=== PATIENT | male | born 1950 | race Caucasian/White ===

== ENCOUNTER 2019-09-29 18:15 | Inpatient (IN) ==
[2019-09-29] MEDS ORDERED: MORPHINE IV ONE ×2 (18:39→20:52)
[2019-09-29] MEDS ORDERED: NS 1,000 ML IV ONE (18:39)
[2019-09-29] MEDS ORDERED: ZOFRAN IV ONE (18:39)
[2019-09-29 18:48] LABS: BASO# 0.07 X1000 (0.0-0.2); BASO% 0.4 % (0.0-0.8); EOS# 0.06 X1000 (0.0-0.7); EOS% 0.4 % (0.0-10.0); HEMATOCRIT 47.1 % (42.0-52.0); HEMOGLOBIN 15.4 g/dL (14.0-18.0); IMM GRAN# 0.03 X1000 (0.0-0.04); IMM GRAN% 0.2 % (0.0-0.5); LYMPH# 1.75 X1000 (1.2-3.4); MCH 29.1 PG (27-31); MCHC 32.7 g/dL (33-37); MCV 88.9 FL (81-99); MONO# 0.96 X1000 (0.11-0.59); MPV 9.7 FL (7.4-10.4); NEUT# 13.05 X1000 (1.4-6.5); PLT 360 X1000 (130-400); RDW 12.7 % (11.5-14.5); WBC 15.92 X1000 (4.8-10.8)
[2019-09-29 19:06] LABS: AGAP 15; ALBUMIN 4.8 g/dL (3.5-5.0); ALKALINE PHOSPHATASE 106 U/L (32-122); AMYLASE 70 U/L (20-200); BUN 11 mg/dL (8-22); CALCIUM 9.6 mg/dL (8.8-10.2); CHLORIDE 101 mmol/L (98-107); COSMO 286; ESTIMATED GFR > 60; GLUCOSE 161 mg/dL (70-104); GOT 28 U/L (10-34); GPT 27 U/L (10-44); LIPASE 18 U/L (13-60); MAGNESIUM 2.1 mg/dL (1.5-2.7); POTASSIUM 3.8 mmol/L (3.5-5.1); SODIUM 142 mmol/L (136-145); TCO2 26 mmol/L (25-35); TOTAL PROTEIN 8.1 g/dL (6.3-8.3)
[2019-09-29 19:21] LABS: INFLUENZA A NEGATIVE (NEGATIVE); INFLUENZA B NEGATIVE (NEGATIVE)
[2019-09-29 19:22] LABS: URINE SOURCE CLEAN CATCH
[2019-09-29 19:24] LABS: BILIRUBIN URINE NEGATIVE (NEGATIVE); BLOOD URINE NEGATIVE (NEGATIVE); COLOR YELLOW; GLUCOSE URINE NEGATIVE (NEGATIVE); KETONE URINE 100 mg/dL (NEGATIVE); LEUKOCYTES URINE NEGATIVE (NEGATIVE); NITRITE URINE NEGATIVE (NEGATIVE); PH URINE 5.5; PROTEIN URINE 30 mg/dL (NEGATIVE); SP GRAVITY URINE 1.032; TURBIDITY URINE CLEAR (CLEAR); UROBILINOGEN URINE NORMAL (NORMAL)
[2019-09-29 19:25] LABS: UR EPITHELIAL CELLS <10 /HPF (<10); URINE BACTERIA NEGATIVE /HPF; URINE RBC <10 /HPF (<10); URINE WBC <10 /HPF (<10)
--- NOTE | 2019-09-29 20:30 | Diag Imaging Result Doc PS360 ---
EXAM: CT ABD/PELVIS W/IV CONT ONLY 09/29/2019 HISTORY: diffuse abd pain, n/v, low abd tenderness TECHNIQUE: This exam was performed using automated exposure control, adjustment of mA or kV according to patient size, and/or use of iterative reconstruction technique. COMMENT: There is some tree and bud opacity in the lateral left lower lobe. This may represent minimal pneumonitis. There are no previous studies. There is a large amount of fluid in the stomach. There are no gallstones. The liver spleen and adrenal glands are within normal limits. The kidneys are without evidence of hydronephrosis or mass. There our some cortical cysts present in the right kidney. There is a small hiatal hernia. There is panniculitis. There is a mesenteric node on image 63 measuring over 2.4 cm. There are distended distal jejunal loops. There are calcifications in the mesenteric fat. The distal ileum is normal in caliber. The transitional zone is around image 104 in the upper pelvis. There is some fluid in the rectovesical pouch. The appendix is normal in caliber. There is no evidence of acute disease in the visualized portion of the skeleton. IMPRESSION: 1. Minimal left lower lobe pneumonitis. 2. Partial small bowel obstruction. 3. Mesenteric panniculitis. Electronically signed by Mega Stapleton 09/29/2019 8:27 PM
[2019-09-29] MEDS ORDERED: D5 NS 1,000 ML IV ONE (21:07)
--- NOTE | 2019-09-29 21:11 | PROVIDER DOCUMENTATION ---
This chart was entered by Sandra Reyna Scribe, acting as scribe for Arianne Gastelum CRNP. HPI-Abdominal Pain/GI Problem - General Chief Complaint: Abdominal Pain Stated Complaint: FLU LIKE SX Time Seen by Provider: 09/29/19 18:26 Source: patient Allergies/Adverse Reactions: Patient Allergies Allergy/AdvReac Type Severity Reaction Status Date / Time No Known Allergies Allergy Verified 09/29/19 18:23 Home Medications: Home Medication List Medication Instructions Recorded Confirmed Last Taken Type Lovastatin 40 mg PO DAILY 09/29/19 09/29/19 Unknown History - History of Present Illness-ABD Nature of Presenting Problems: pt is a 69 yr old male presenting with mid abdominal pain, nausea and vomiting, pt reports vomited x 1, no fever/chills. diaphoretic. pt denies chest pain or shortness of breath Abdominal Pain Onset Location: reports: other (mid abdomen) Pain Radiation: reports: no radiation Quality of Pain: reports: cramping Severity in ED: reports: moderate Onset/Duration: reports: this morning Timing: reports: still present Activities at Onset: reports: light activity Exposure to sick contacts?: No Modifying Factors: improves with: nothing Associated Symptoms: reports: diaphoresis, nausea, vomiting. denies: chest pain, constipation, diarrhea, fever/chills, genitourinary problems Last BM: unsure Dark Stools Present?: reports: none noticed Rectal Bleeding: reports: none Rectal Pain: reports: none # of Vomiting Episodes: 1 Emesis Description: reports: clear Bruising or Bleeding Gums?: No Similar Symptoms Previously?: No Recently seen or treated by another doctor?: No Review of Systems - Adult - REVIEW OF SYSTEMS - ADULT Constitutional: reports: chills. denies: fever, fatique Eyes: denies: discharge, redness Ears, Nose, Mouth & Throat: denies: ear pain, sinus problem, throat pain Cardiovascular: denies: chest pain, palpitations, syncope Respiratory: denies: cough, shortness of breath Gastrointestinal: reports: abdominal pain, nausea, vomiting. denies: diarrhea Genitourinary: denies: dysuria, frequency, flank pain Musculoskeletal: reports: no symptoms reported Integumentary: reports: no symptoms reported Neurological: denies: dizziness/vertigo, headache/migraines Psychiatric: reports: no symptoms reported Endocrine: reports: no symptoms reported Hematologic/Lymphatic: reports: no symptoms reported Allergic/Immunologic: reports: no symptoms reported All Other Systems: Reviewed and Negative Past History - Adult - PAST MEDICAL HISTORY-ADULT Review of Records: reports: Nursing Assessment Review, Medications Reviewed, Social history reviewed & non-contributory. Major Childhood Illnesses: reports: denies history Cardiovascular: reports: denies history Respiratory: reports: denies history Gastrointestinal: reports: denies history Obstetrical/Gynecological: reports: denies history Genitourinary: reports: denies history Musculoskeletal: reports: denies history Neurological: reports: denies history Endocrine/Immune: reports: denies history Other Conditions: reports: denies history - IMMUNIZATION STATUS Childhood Immunizations: See Nurse Assessment Flu Vaccine: See Nurse Assessment - FAMILY HISTORY Family History: reviewed, not pertinent - SOCIAL HISTORY Smoking: denies Substance Use: denies Living Situation: family Physical Exam-General - PHYSICAL EXAM-ADULT Initial Vital Signs Reviewed: Yes - CONSTITUTIONAL General Appearance: alert, mild distress - EYES Eyes: PERRL/EOMI - HEAD, EARS, NOSE, MOUTH & THROAT HENMT: normocephalic/atraumatic, moist mucous membranes, normal ENT inspection - NECK Neck: non-tender, full range of motion, supple, normal inspection - RESPIRATORY Respiratory: chest non-tender, lungs clear, normal breath sounds - CARDIOVASCULAR Cardiovascular: normal peripheral pulses, regular rate, rhythm, no edema - GASTROINTESTINAL (ABDOMEN) Abdominal Exam: normal bowel sounds, soft, guarding, tenderness (low abdomen) - LYMPHATIC Lymphatic: no adenopathy - MUSCULOSKELETAL Back Exam: normal inspection Extremity: normal range of motion, non-tender, normal gait, normal inspection - SKIN Integumentary: normal turgor, diaphoresis - NEUROLOGIC Neurologic: grossly normal - PSYCHIATRIC Psych/Mental Status: normal mood/affect Progress - PLAN OF CARE/RESULTS Progress/Plan/Lab Results: Vital Signs - 8 hr 09/29/19 18:18 Temperature 97.8 F Pulse Rate 93 H Respiratory Rate 19 Blood Pressure 127/84 O2 Sat by Pulse Oximetry 96 Laboratory Results - last 24 hr 09/29/19 09/29/19 09/29/19 18:30 18:40 18:40 WBC 15.92 H RBC 5.30 Hgb 15.4 Hct 47.1 MCV 88.9 MCH 29.1 MCHC 32.7 L RDW Std Deviation 12.7 Plt Count 360 MPV 9.7 Immature Gran % (Auto) 0.2 Neut % (Auto) 82.0 H Lymph % (Auto) 11.0 L [place] % (Auto) 6.0 Eos % (Auto) 0.4 Baso % (Auto) 0.4 Immature Gran # (Auto) 0.03 Neut # (Auto) 13.05 H Lymph # (Auto) 1.75 [place] # (Auto) 0.96 H Eos # (Auto) 0.06 Baso # (Auto) 0.07 Sodium Potassium Chloride Carbon Dioxide Anion Gap BUN Creatinine Estimated GFR/1.73 m2 BUN/Creatinine Ratio Glucose Calculated Osmolality Calcium Magnesium Total Bilirubin AST ALT Alkaline Phosphatase Creatine Kinase 136 Troponin T Total Protein Albumin Globulin Albumin/Globulin Ratio Amylase Lipase Plasma Lactate Urine Source Urine Color Urine Turbidity Urine pH Ur Specific [place] Urine Protein Ur Glucose (Stick) Ur Ketones (Stick) Urine Blood Urine Nitrite Urine Bilirubin Urobilinogen Dipstick Urine Leukocytes Urine WBC (Auto) Urine RBC (Auto) U Epithel Cells (Auto) Urine Bacteria (Auto) Influenza A (Rapid) NEGATIVE Influenza B (Rapid) NEGATIVE 09/29/19 09/29/19 09/29/19 18:40 18:40 18:40 WBC RBC Hgb Hct MCV MCH MCHC RDW Std Deviation Plt Count MPV Immature Gran % (Auto) Neut % (Auto) Lymph % (Auto) [place] % (Auto) Eos % (Auto) Baso % (Auto) Immature Gran # (Auto) Neut # (Auto) Lymph # (Auto) [place] # (Auto) Eos # (Auto) Baso # (Auto) Sodium 142 Potassium 3.8 Chloride 101 Carbon Dioxide 26 Anion Gap 15 BUN 11 Creatinine 1.0 Estimated GFR/1.73 m2 > 60 BUN/Creatinine Ratio 11 Glucose 161 H Calculated Osmolality 286 Calcium 9.6 Magnesium 2.1 Total Bilirubin 0.40 AST 28 ALT 27 Alkaline Phosphatase 106 Creatine Kinase Troponin T < 0.010 Total Protein 8.1 Albumin 4.8 Globulin 3.0 Albumin/Globulin Ratio 1.0 Amylase 70 Lipase 18 Plasma Lactate 2.2 Urine Source Urine Color Urine Turbidity Urine pH Ur Specific [place] Urine Protein Ur Glucose (Stick) Ur Ketones (Stick) Urine Blood Urine Nitrite Urine Bilirubin Urobilinogen Dipstick Urine Leukocytes Urine WBC (Auto) Urine RBC (Auto) U Epithel Cells (Auto) Urine Bacteria (Auto) Influenza A (Rapid) Influenza B (Rapid) 09/29/19 19:16 WBC RBC Hgb Hct MCV MCH MCHC RDW Std Deviation Plt Count MPV Immature Gran % (Auto) Neut % (Auto) Lymph % (Auto) [place] % (Auto) Eos % (Auto) Baso % (Auto) Immature Gran # (Auto) Neut # (Auto) Lymph # (Auto) [place] # (Auto) Eos # (Auto) Baso # (Auto) Sodium Potassium Chloride Carbon Dioxide Anion Gap BUN Creatinine Estimated GFR/1.73 m2 BUN/Creatinine Ratio Glucose Calculated Osmolality Calcium Magnesium Total Bilirubin AST ALT Alkaline Phosphatase Creatine Kinase Troponin T Total Protein Albumin Globulin Albumin/Globulin Ratio Amylase Lipase Plasma Lactate Urine Source CLEAN CATCH Urine Color YELLOW Urine Turbidity CLEAR Urine pH 5.5 Ur Specific [place] 1.032 Urine Protein 30 A Ur Glucose (Stick) NEGATIVE Ur Ketones (Stick) 100 A Urine Blood NEGATIVE Urine Nitrite NEGATIVE Urine Bilirubin NEGATIVE Urobilinogen Dipstick NORMAL Urine Leukocytes NEGATIVE Urine WBC (Auto) <10 Urine RBC (Auto) <10 U Epithel Cells (Auto) <10 Urine Bacteria (Auto) NEGATIVE Influenza A (Rapid) Influenza B (Rapid) Orders Category Date Time Status Cardiac Monitoring DIRECTED Care 09/29/19 18:25 Active Cardiac Monitoring DIRECTED Care 09/29/19 18:39 Active Nursing- Obtain EKG ONCE Care 09/29/19 18:[address] ABD/PELVIS W/IV CONT ONLY [CT] Stat Exams 09/29/19 18:39 Taken AMYLASE [CHEM] Stat Lab 09/29/19 18:40 Completed CBC WITH DIFF [HEME] Stat Lab 09/29/19 18:40 Completed CK PROFILE [SP CHEM] Stat Lab 09/29/19 18:40 Completed COMPREHENSIVE METABOLIC PANEL [CHEM] Stat Lab 09/29/19 18:40 Completed Flu [INFLUENZA SCREEN PL] Stat Lab 09/29/19 18:30 Completed LACTATE, PLASMA [CHEM] Stat Lab 09/29/19 18:40 Completed LIPASE [CHEM] Stat Lab 09/29/19 18:40 Completed MAGNESIUM [CHEM] Stat Lab 09/29/19 18:40 Completed TROPONIN T Stat Lab 09/29/19 18:40 Completed UA NIMS W/REFLEX CULT [URINALYSIS] Stat Lab 09/29/19 19:16 Completed 0.9% Sodium Chloride Inj [Ns] 1,000 ml Med 09/29/19 18:39 Discontinued IV 999 mls/hr Morphine Med 09/29/19 18:39 Discontinued 2 mg IV NOW ONE Ondansetron [Zofran] Med 09/29/19 18:39 Discontinued 4 mg IV NOW ONE EKG [EKG] Stat Ther 09/29/19 18:25 Ordered Result Diagrams: 09/29/19 18:40 09/29/19 18:40 - REASSESSMENT Reassessment #1 Time Reassessed: 20:53 Status: other (Admitting [facility] (at ) paged.) Reassessment #2 Time Reassessed: 21:10 Status: improving (Pain improved, pt states pain meds wearing off and he requests more. He is in agreement with admission plan.) - EKG 1 Time of EKG reading by physician:: 18:31 EKG Read and Signed by:: Sanjeev Peng EKG Interpretation (*Must complete 3 of following elements*): Normal Rate: 52 Rhythm: sinus kel [place]: normal QRS: normal MA Interval: normal ST Wave: normal - CT/MRI 1 CT Study: Abdomen, Pelvis ([facility] - [address] , [address], [place] [address] [facility] - [address] [place] [address] Department of Imaging Patient: SHERLYN HANSEN Date: 09/29/19#: [id number] : 1950DM Status: [facility]#: [id number] Age/Sex: 69/MRoom/Bed: Loc: P.ED Ordering Physician: Arianne Gastelum Family Physician: Cathie Bustillo MD Reason for Procedure: diffuse abd pain, n/v, low abd tenderness ___ Signed EXAM: CT ABD/PELVIS W/IV CONT ONLY 09/29/2019 HISTORY: diffuse abd pain, n/v, low abd tenderness TECHNIQUE: This exam was performed using automated exposure control, adjustment of mA or kV according to patient size, and/or use of iterative reconstruction technique. COMMENT: There is some tree and bud opacity in the lateral left lower lobe. This may represent minimal pneumonitis. There are no previous studies. There is a large amount of fluid in the stomach. There are no gallstones. The liver spleen and adrenal glands are within normal limits. The kidneys are without evidence of hydronephrosis or mass. There our some cortical cysts present in the right kidney. There is a small hiatal hernia. There is panniculitis. There is a mesenteric node on image 63 measuring over 2.4 cm. There are distended distal jejunal loops. There are calcifications in the mesenteric fat. The distal ileum is normal in caliber. The transitional zone is around image 104 in the upper pelvis. There is some fluid in the rectovesical pouch. The appendix is normal in caliber. There is no evidence of acute disease in the visualized portion of the skeleton. IMPRESSION: 1. Minimal left lower lobe pneumonitis. 2. Partial small bowel obstruction. 3. Mesenteric panniculitis. Electronically signed by Mega Stapleton 09/29/2019 8:27 PM 09/29/192026 Interpreting Physician: Mega Stapleton MD Dictated Date/Time: 09/29/192020 cc: Arianne Gastelum; Cathie Bustillo MD) - CONSULTS/PCP/HOSPITALIST Notification #1 *Consult/PCP/Hospitalist*: Dr. Mobley Time Discussed: 20:48 Reason/Comments: partial SBO, abdominal pain Consult Disposition: other (Recommends admission to [facility] at , states they can consult him.) #2 Consult: Dr. Whittington Time Discussed: 21:10 Reason/Comments: admission-abd pain, SBO Consult Disposition: Admit (Dr. Whittington accepted pt, states to send to surgical floor and he will see pt upon arrival and enter orders.) Departure - Departure Date of Disposition Decision: 09/29/19 Time of Disposition Decision: 20:52 DIAGNOSIS: SBO (small bowel obstruction) Abdominal pain Qualifiers: Abdominal location: unspecified location Qualified Code(s): R10.9 - Unspecified abdominal pain Disposition: ADMITTED INPATIENT 09 Certified Medical Emergency: Emergent Condition: Stable Additional Instructions: ED Follow Up Instructions: You have been treated by a care provider in the Emergency Department. These instructions are being provided to you so you can have an understanding of how to care for yourself upon discharge. Upon discharge from the Emergency Depart ment, you are responsible for making arrangements for follow-up care by a physician of your choice. Take all prescribed medications as directed. Return to the Emergency Department immediately for any new or worsening symptoms. You may call the Physician Referral phone number at [phone] to obtain a list of Physicians who are taking new patients. Referrals and Follow-Ups: Cathie Bustillo MD [Primary Care Provider] - Work Excuses: Return to School/Parent Work - Critical Care Note This patient required my direct & personal management of CC.: No Attestation - Physician/ LIZZY Attestation Patient care was provided by Advanced Practice Provider:: Yes Advanced Practice Provider:: Arianne Gastelum Advanced Practice Provider documentation review:: The Mid-level provider documentation, treatment plan and medical decision making was reviewed by the physician who agrees with all treatment and medical decision making by the MLP. The physician spent face to face time with patient:: No Advanced Practice Provider documentation review:: Supervising physician onsite and consulted in the evaluation and care of this patient. The physician did not have a face to face encounter with the patient. This chart was documented by the indicated scribe, (aSndra Reyna Scribe) and accurately reflects the services I performed and decisions made by , Arianne Gastelum CRNP, as attested by the provider's signature.
[2019-09-30] MEDS ORDERED: MORPHINE IV PRN (01:15)
[2019-09-30] MEDS ORDERED: TYLENOL PO PRN ×2 (01:15→11:00)
[2019-09-30] MEDS: ZOFRAN IV PRN ×2 (01:43→10:02)
[2019-09-30] MEDS: PROTONIX IV SCH (01:43)
[2019-09-30] MEDS: SODIUM CHLORIDE 0.9% INJ SCH (01:43)
[2019-09-30] MEDS: ZOSYN 3.375 GM in NS 50 ML IV SCH ×4 (01:51→22:58)
[2019-09-30] MEDS: LR 1,000 ML IV SCH ×2 (01:52→14:07)
--- NOTE | 2019-09-30 02:40 | HISTORY AND PHYSICAL ---
ADDENDUM: Patient comes in complaining of a 2-3 day history of colicky abdominal pain with no specific aggravating or relieving factors. He says he has only thrown up once and his last bowel movement was 24 hours ago and it was nonbloody, nonmucoid with no melena. He denies any fever or chills. He said colicky pain started becoming more intense a few hours prior to presenting to the ER. He said the pain today got so bad that he would have intense rigors and breakout into a profound sweat. Since he has been in the ER and received IV antibiotics, he is feeling better. His white count 16,000. CT shows a panniculitis, partial small bowel obstruction with pneumonitis. Dr. Mobley has been notified and he wanted the patient transferred to our facility and he will see him in the morning. For now, just supportive care with fluids, antiemetics and analgesic agents. May consider antibiotics, i.e. Zosyn, if deemed necessary. On my examination of the patient, he was not toxic at all. He had very mild right lower quadrant tenderness with no peritoneal signs. Otherwise, rest of exam was benign. cc: Chelo Whittington MD
--- NOTE | 2019-09-30 04:27 | EKG Report ---
Test Performed on : 09/29/2019 6:31:46 PM Test Reason : clammy nausea sudden onset Blood Pressure : / mmHG Vent. Rate : 052 BPM Atrial Rate : 052 BPM P-R Int : 140 ms QRS Dur : 104 ms QT Int : 452 ms P-R-T Axes : 041 026 011 degrees QTc Int : 420 ms Sinus bradycardia. Otherwise normal ECG No previous ECGs available Unconfirmed Result
[2019-09-30] MEDS ORDERED: OFIRMEV 1000 MG/ISOTONIC SOLN 1,000 MG/100 ML BOTTLE IV ONE (04:47)
--- NOTE | 2019-09-30 07:10 | Diag Imaging Result Doc PS360 ---
EXAM: CHEST-PORTABLE 09/30/2019 HISTORY: Tree and bud opacity LLL on CT Abd/Pelvis TECHNIQUE: AP portable at 0527 COMMENT: There is no evidence of acute cardiac or pulmonary disease. No previous studies are available for comparison. IMPRESSION: No evidence of acute disease. Electronically signed by Mega Stapleton 09/30/2019 7:08 AM
[2019-09-30] MEDS: MORPHINE IV PRN ×2 (10:02→16:45)
[2019-09-30 12:04] LABS: BASO# 0.03 X1000 (0.0-0.2); BASO% 0.2 % (0.0-0.8); EOS# 0.03 X1000 (0.0-0.7); EOS% 0.2 % (0.0-10.0); HEMATOCRIT 43.6 % (42.0-52.0); HEMOGLOBIN 14.8 g/dL (14.0-18.0); IMM GRAN# 0.03 X1000 (0.0-0.04); IMM GRAN% 0.2 % (0.0-0.5); LYMPH# 1.36 X1000 (1.2-3.4); LYMPH% 9.6 % (20.5-51.1); MCH 30.3 PG (27-31); MCHC 33.9 g/dL (33-37); MCV 89.2 FL (81-99); MONO# 1.12 X1000 (0.11-0.59); MONO% 7.9 % (1.7-9.3); MPV 9.8 FL (7.4-10.4); NEUT# 11.64 X1000 (1.4-6.5); NEUT% 81.9 % (42.2-75.2); PLT 286 X1000 (130-400); RBC 4.89 XMIL (4.7-6.1); WBC 14.21 X1000 (4.8-10.8)
[2019-09-30 12:20] LABS: AGAP 14; BUN 11 mg/dL (8-22); CALCIUM 8.8 mg/dL (8.8-10.2); CHLORIDE 102 mmol/L (98-107); COSMO 282; CREATININE 1.1 mg/dL (0.7-1.2); ESTIMATED GFR > 60; GLUCOSE 121 mg/dL (70-104); SODIUM 141 mmol/L (136-145); TCO2 25 mmol/L (25-35)
--- NOTE | 2019-09-30 13:17 | Diag Imaging Result Doc PS360 ---
EXAM: SMALL BOWEL SERIES ONLY 09/30/2019 HISTORY: Partial SBO TECHNIQUE: 10 images, COMMENT: There is dilatation of the proximal small bowel. There is an apparent obstruction in the upper pelvis which is demonstrated over the left sacral allyssa. There is no significant progress of the barium column between the one hour image and the five hour image this level. IMPRESSION: Small bowel obstruction as described. Electronically signed by Mega Stapleton 09/30/2019 1:15 PM
--- NOTE | 2019-09-30 15:06 | HISTORY AND PHYSICAL ---
PRIMARY CARE PROVIDER: Dr. Bustillo DATE AND TIME: 09/30/2019 at 0400. CHIEF COMPLAINT: Abdominal pain. HISTORY OF PRESENT ILLNESS: Mr. Conte is a 69-year-old male with a reported only known history of hyperlipidemia for which he takes lovastatin for. He denies any previous surgical history. The patient states that yesterday on 09/29/2019 at 11 a.m. he began having crampy abdominal pain. The patient states since that his own since the onset yesterday at 11 a.m. that has been constant, though does intermittently become more intense. He has had nausea. He has had a total of 2 episodes of vomiting, though he denies any hematemesis or coffee-ground appearing emesis. He denies any diarrhea states his last bowel movement was yesterday at 6 a.m. He denies any hematochezia or melena. He does state that he has been able to pass flatulence. The patient reports that yesterday just prior to coming to the ER, he did have an intense episode of pain for which he did break out in a sweat and had some rigors. Though other than this, he states he has not felt as though he has had fever, body aches, or chills. He denies any headache, dizziness, chest pain, shortness of breath or cough. He denies any dysuria or urinary frequency. He denies any pain, numbness, tingling or swelling in extremities. Upon evaluation in the ER at [facility], he was noted to have some leukocytosis with a white blood cell count of 15,920. Chemistries were pretty much unremarkable. He has slightly elevated glucose level. Urinalysis did show some protein and ketones. Other than this, did not show any signs of infection. They did perform an influenza screen which was negative. Given his abdominal and they did perform a CT of the abdomen and pelvis with IV contrast which did show a minimal left lower lobe pneumonitis, partial small bowel obstruction and mesenteric panniculitis. Dr. Mobley was notified by the ER physician. The patient was transferred from [facility] to [facility]. REVIEW OF SYSTEMS: A 14 point review of systems was conducted with the patient. All were negative except for pertinent positives mentioned above HPI. PAST MEDICAL HISTORY: Hyperlipidemia. PAST SURGICAL HISTORY: The patient denies any previous surgery. SOCIAL HISTORY: The patient denies any tobacco, alcohol or illicit drug use. FAMILY HISTORY: The patient reports that his mother had a history of kidney disease and did have to have 1 of her kidneys removed, though he does not remember exactly why. His father had a history of heart disease. He did have myocardial infarction at age 57 and a stroke and lived to be in his 80s. He states his siblings have no known medical history. ALLERGIES: Patient has no known allergies. HOME MEDICATIONS: Lovastatin 40 mg p.o. daily. DIAGNOSTIC DATA/LABORATORY RESULTS: White blood cell count is 15,920, hemoglobin 15.4, hematocrit 47.1, platelet count is 360,000. Sodium 142, potassium 3.8, chloride 101, serum bicarb 26, BUN 11, creatinine 1, GFR greater than 60, glucose 161, calcium 9.6, magnesium 2.1. Liver function tests within normal limits. CK 136, troponin less than 0.01. Amylase 70, lipase 18. Plasma lactate was 2.2. Urinalysis was obtained via clean catch, was positive for protein ketones though was negative for glucose, blood, nitrites, leukocytes, white blood cells, or bacteria. Influenza screen was negative. CT abdomen and pelvis did show minimal left lower lobe pneumonitis. There was a partial small bowel obstruction. Mesenteric panniculitis. PHYSICAL EXAMINATION: VITAL SIGNS: Temperature 98.2 degrees, heart rate is 50, respiratory rate 16, blood pressure 150/72, oxygen saturation is 96% on room air. GENERAL: Mr. Conte is a pleasant 69-year-old male who was resting in the inpatient bed. He was in no acute distress. He was awake, alert, and able to answer questions appropriately. HEENT: Head is atraumatic, normocephalic. Pupils are equal, round, reactive to light, were 3 mm bilaterally and brisk. Oral mucosa was moist. Oropharynx was clear. NECK: Supple, trachea midline. CARDIOVASCULAR: Patient has S1-S2 present. No murmurs, gallops, rubs appreciated with a slightly bradycardic rate that is regular. PULMONARY: Patient has symmetrical chest expansion bilaterally. Lung sounds are clear to auscultation in bilateral full ramirez. ABDOMEN: Soft. Nondistended. The patient did report some generalized soreness upon palpation mainly all across his lower abdomen just inferior to the umbilicus. Bowel sounds were present though were hypoactive. EXTREMITIES: No cyanosis or edema noted. Pulse, motor, and sensory were intact in all extremities. Radial and pedal pulses were 2+ bilaterally. INTEGUMENTARY: Skin is pink, warm, and dry. NEUROLOGICAL: Patient is alert and oriented to person, place, time, and situation. He was able move all extremities. There were no focal neurological deficits noted. ASSESSMENT AND PLAN: 1. Partial small-bowel obstruction. For this the patient will be placed NPO. He has had 2 episodes of nausea and vomiting though is not having active vomiting at this time. He is reporting some occasional nausea. We have placed p.r.n. orders for antiemetics and pain medicine. We will continue with gentle intravenous hydration with normal saline at 100 mL/h. He did receive a 1 L normal saline bolus in the ER at [facility]. We have ordered for him to have a small bowel series radiology exam in the morning. We have placed a consult with Dr. Mobley with surgery. We will await his evaluation and further recommendations for management. 2. Findings of left lower lobe pneumonitis. We have ordered a chest x-ray to be performed given these findings. We are waiting for this to be completed at this time. 3. Deep venous thrombosis prophylaxis, provided with sequential compression devices. The patient has been placed on the medical floor with telemetry. He will have vital signs hours q 8 hours with a strict intake and output, incentive spirometry. We will repeat a CBC and BMP in the morning. Given the patient's leukocytosis as well as reports of rigors and diaphoresis, which could represent possible fever and his CT findings, we did go ahead decide to cover him with antibiotics of Zosyn IV. Further orders and recommendations pending hospital course, diagnostic studies, and physician evaluation. Dictated by RUBENS Urrutia for Chelo Whittington MD cc: Chelo Whittington MD [facility]
--- NOTE | 2019-09-30 22:08 | PROGRESS NOTE ---
DATE: 09/30/2019 SUBJECTIVE: The patient reports mild abdominal distention and also colicky abdominal pain that is getting better. Denies any fever or chills. OBJECTIVE: Vital Signs: Temperature 98.2 degrees, heart rate 50, respiratory rate 16, blood pressure 150/72, O2 saturation 96% on room air. General examination: This is a 69-year-old male, lying in bed, in no acute distress. Cardiovascular: S1, S2 heard. No murmurs, gallops, or rubs. Regular rate and rhythm. Respiratory: Clear bilaterally to auscultation. No work of breathing or use of accessory muscles. Abdomen: Soft. A little bit distended. Nontender to palpation. Bowel sounds present. No organomegaly. Extremities: No clubbing, cyanosis, or edema. Peripheral pulses present in both legs. Neurological: Patient alert and oriented. Moving all 4 extremities. LABORATORY DATA: White cell count 14.21, hemoglobin 14.8. Normal BMP. ASSESSMENT AND PLAN: 1. Partial small bowel obstruction. Patient is not feeling nauseated anymore. We will continue with IV fluids and pain medication. There is no history and physical available in the computer. At this point, a small bowel series has been ordered. Surgical evaluation is still pending. At this point, we will continue with same management. 2. Left lower lobe pneumonitis. We will continue with Zosyn and IV fluids. We will continue with breathing treatments. 3. Disposition. We will continue to monitor this patient closely. cc: Segundo Mckoy MD
[2019-10-01] MEDS: PROTONIX IV SCH (02:08)
--- NOTE | 2019-10-01 04:53 | CONSULTATION ---
DATE OF CONSULTATION: 09/30/2019 REASON FOR CONSULTATION: Small bowel obstruction. SURGEON CONSULTING: Adi Mobley MD REQUESTING PHYSICIAN: Dr. Oliva. HISTORY OF PRESENT ILLNESS: This is a 69-year-old male who was in his usual state of health until yesterday afternoon. He began having mid abdominal crampy pain which was persistent and progressive in nature without relieving factors at home, so we came to the emergency room for further evaluation. He did get morphine, which did help. He is currently not hurting anything like he was yesterday. His last bowel movement was yesterday morning and was normal. He has not passed gas since then. He did have an episode of pain again this morning with nausea and vomiting. He felt better after the vomiting. He has never had any prior episodes like this. PAST MEDICAL HISTORY: Hyperlipidemia. PAST SURGICAL HISTORY: None pertinent. HOME MEDICATIONS: Lovastatin. ALLERGIES: No known drug allergies. FAMILY HISTORY: Reviewed and noncontributory. SOCIAL HISTORY: Negative for tobacco, alcohol or illicit drug use. REVIEW OF SYSTEMS: Ten systems reviewed and negative, except as noted above. PHYSICAL EXAM: Vital signs: He is afebrile. Vital signs are stable. General: He is awake, alert, oriented x3. No acute distress. HEENT: Normocephalic, atraumatic. Extraocular muscles intact. Pupils equal, round, reactive to light. Sclerae anicteric. Moist mucous membranes. Hearing grossly normal. No oral lesions. Neck: Supple. No thyromegaly. Cardiovascular: Regular rate and rhythm. Respiratory: Bilateral breath sounds. No work of breathing. Gastrointestinal: Soft, nondistended. Minimally tender. He does have a few hypoactive bowel sounds. No organomegaly or mass. No hernias. Extremities: No clubbing, cyanosis, or edema. Skin: Warm and dry. No rash. Musculoskeletal: Moves all extremities equally and well. LABORATORY: White blood cell count 14,000, hemoglobin 14.8, hematocrit 43. Electrolytes reviewed and unremarkable. Liver function tests normal. Amylase and lipase normal. Urinalysis unremarkable. Influenza A and B serology is negative. IMAGING: CT of abdomen and pelvis was performed which showed some distended loops of small bowel with air-fluid levels consistent with partial obstruction. His stomach was noted to be moderately distended on the study. 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 ASSESSMENT/PLAN: A 69-year-old male with abdominal pain and vomiting, likely related to partial obstruction and early pneumonia. There is no clear mechanical reason for his obstruction. He seems to be improved. We will start him on ice chips and sips of water and recheck his x-ray in the morning. cc: Adi Mobley MD
[2019-10-01] MEDS: ZOSYN 3.375 GM in NS 50 ML IV SCH ×4 (05:46→22:04)
[2019-10-01 08:05] LABS: BASO# 0.03 X1000 (0.0-0.2); BASO% 0.2 % (0.0-0.8); EOS# 0.02 X1000 (0.0-0.7); EOS% 0.2 % (0.0-10.0); HEMATOCRIT 45.9 % (42.0-52.0); HEMOGLOBIN 15.3 g/dL (14.0-18.0); IMM GRAN# 0.02 X1000 (0.0-0.04); IMM GRAN% 0.2 % (0.0-0.5); LYMPH# 1.43 X1000 (1.2-3.4); MCH 29.9 PG (27-31); MCHC 33.3 g/dL (33-37); MCV 89.6 FL (81-99); MONO# 1.23 X1000 (0.11-0.59); MONO% 9.5 % (1.7-9.3); MPV 9.9 FL (7.4-10.4); NEUT# 10.26 X1000 (1.4-6.5); NEUT% 78.9 % (42.2-75.2); PLT 299 X1000 (130-400); RBC 5.12 XMIL (4.7-6.1); RDW 12.8 % (11.5-14.5); WBC 12.99 X1000 (4.8-10.8)
--- NOTE | 2019-10-01 08:25 | Diag Imaging Result Doc PS360 ---
EXAM: FLAT/UPRIGHT ABD/1 VIEW CHEST 10/01/2019 HISTORY: sbo, pna TECHNIQUE: Flat and upright abdomen with PA chest COMMENT: There continues to be distention of the small bowel with multiple air-fluid levels. The barium received during the small bowel series on 09/30/2019 is still present and there is apparent obstruction at the level of the left sacral allyssa and a similar location to the previous study. The stomach and duodenum and proximal jejunum are not distended. There is no evidence of free air. The appearance the chest has not changed appreciably since 09/30/2019. IMPRESSION: Small bowel obstruction. Electronically signed by Mega Stapleton 10/01/2019 8:22 AM
[2019-10-01 08:26] LABS: AGAP 14; BUN 12 mg/dL (8-22); CALCIUM 8.9 mg/dL (8.8-10.2); CHLORIDE 100 mmol/L (98-107); COSMO 277; CREATININE 1.1 mg/dL (0.7-1.2); ESTIMATED GFR > 60; GLUCOSE 122 mg/dL (70-104); POTASSIUM 3.8 mmol/L (3.5-5.1); SODIUM 138 mmol/L (136-145); TCO2 24 mmol/L (25-35)
--- NOTE | 2019-10-01 09:11 | GENERAL SURGERY PROGRESS NOTE ---
DATE: 10/01/2019 SUBJECTIVE: The patient threw up last night. He has passed a little gas. His pain comes and goes. It is crampy in nature. OBJECTIVE: Vital signs: He is afebrile. Vital signs are stable. General: He is awake, alert, oriented x3. No acute distress. Gastrointestinal: Soft, nondistended, mildly tender. No rebound or guarding. No mass or hernia appreciated. LABORATORY DATA: White blood cell count 12.9. Electrolytes reviewed and unremarkable. IMAGING: His small bowel follow-through and follow-up abdominal x-ray this morning consistently show obstruction. There appears to be a blockage in his pelvis on the left side. There is no progression of barium to the colon. ASSESSMENT AND PLAN: A 69-year-old male with small bowel obstruction. I have recommended exploratory laparotomy today. I discussed the risks and benefits with him including bleeding, infection, injury to surrounding organs, incisional hernia, pneumonia, DVT, possible bowel resection, and other imponderables. He understands and agrees to proceed. cc: Adi Mobley MD
[2019-10-01] MEDS ORDERED: DIPRIVAN 1% ONE ×2 (09:28→16:15)
[2019-10-01] MEDS ORDERED: XYLOCAINE-MPF 2% ONE (09:30)
[2019-10-01] MEDS ORDERED: QUELICIN (DOSE) ONE (09:30)
[2019-10-01] MEDS ORDERED: ROBINUL ONE ×2 (09:30→10:37)
[2019-10-01] MEDS ORDERED: MARCAINE 0.25% ONE (09:42)
[2019-10-01] MEDS ORDERED: SODIUM CHLORIDE 0.9% 10 ML ONE (09:42)
[2019-10-01] MEDS ORDERED: EXPAREL 1.3% ONE (09:43)
[2019-10-01] MEDS ORDERED: AK-FLUOR ONE (10:21)
[2019-10-01] MEDS ORDERED: OFIRMEV 1000 MG/ISOTONIC SOLN 1,000 MG/100 ML BOTTLE ONE (10:27)
[2019-10-01] MEDS ORDERED: ZOFRAN ONE (10:27)
[2019-10-01] MEDS ORDERED: DECADRON ONE (10:29)
[2019-10-01] MEDS ORDERED: NEOSTIGMINE ONE (10:38)
[2019-10-01 10:41] LABS: URINE SOURCE CATH
[2019-10-01 10:45] LABS: BILIRUBIN URINE NEGATIVE (NEGATIVE); BLOOD URINE NEGATIVE (NEGATIVE); COLOR YELLOW; GLUCOSE URINE NEGATIVE (NEGATIVE); KETONE URINE 20 mg/dL (NEGATIVE); LEUKOCYTES URINE NEGATIVE (NEGATIVE); NITRITE URINE NEGATIVE (NEGATIVE); PROTEIN URINE TRACE mg/dL (NEGATIVE); SP GRAVITY URINE 1.022; TURBIDITY URINE CLEAR (CLEAR); UROBILINOGEN URINE NORMAL (NORMAL)
[2019-10-01 10:46] LABS: UR EPITHELIAL CELLS <10 /HPF (<10); URINE BACTERIA NEGATIVE /HPF; URINE RBC <10 /HPF (<10); URINE WBC <10 /HPF (<10)
[2019-10-01] MEDS: MORPHINE IV PRN ×3 (12:41→22:04)
[2019-10-01] MEDS: ZOFRAN IV PRN (12:41)
[2019-10-01] MEDS ORDERED: CHLORASEPTIC SORE THROAT LOZENGE MT PRN (13:44)
[2019-10-01] MEDS ORDERED: CHLORASEPTIC SPRAY MT PRN (13:57)
--- NOTE | 2019-10-01 15:09 | OPERATIVE NOTE ---
PROCEDURE DATE: 10/01/2019 PREOPERATIVE DIAGNOSIS: Small bowel obstruction. POSTOPERATIVE DIAGNOSIS: Small bowel obstruction. PROCEDURE PERFORMED: Exploratory laparotomy with lysis of adhesions. SURGEON: Adi Mobley MD. ANESTHESIA: General. ESTIMATED BLOOD LOSS: 10 mL. COMPLICATIONS: None apparent. SPECIMENS: None. FINDINGS: There was an adhesive band bowstringing across his mid small bowel from the mesentery down to the pelvic sidewall. This was causing an obstruction. There was patchy ischemia and what appeared to be necrosis of the small bowel wall in several areas proximal and distal to this. However, after relieving the obstruction from the adhesiolysis, we observed improved color in these areas. A Wood's lamp evaluation with fluorescein injection revealed good flow throughout all the mesentery and the bowel wall did light up fairly well. There were again a few small areas of some ischemia but it appeared to be improving as we observed this over 10 minutes. At the conclusion, I felt like the bowel was viable. It did show much improved color and we decided to close without any resection. TECHNIQUE: The patient was brought to the operating room and placed supine on the table. General anesthesia was induced. He was prepped and draped in the usual sterile fashion. A lower midline incision was made from below the umbilicus down to the symphysis pubis. This was done with a knife and then carried down through the subcutaneous tissue with cautery. The fascia and peritoneum were opened with cautery and carefully avoiding the underlying bowel. I proceeded to begin to bring the bowel out of the incision and came across the adhesive band as described above. This was lysed with Metzenbaum scissors. I was able to identify the ileocecal valve and run the small bowel from distal all the way up to the ligament of Treitz. There were no further adhesive lesions. There were no malignant masses. There was benign-appearing ascites throughout the abdomen. The sigmoid colon and cecum appeared to be healthy. We proceeded to perform a Wood's lamp evaluation with fluorescein injection as described above. When this was felt to be satisfactory, we returned the bowel to its anatomic position and placed the omentum over it. I then closed the peritoneum with a running #1 Vicryl and the fascia with a running #1 Maxon. The skin was closed with skin clips. A sterile dressing was applied. There were no apparent complications. cc: Adi Mobley MD
[2019-10-01] MEDS ORDERED: VERSED ONE (16:26)
--- NOTE | 2019-10-01 19:55 | PROGRESS NOTE ---
DATE: 10/01/2019 INTERVAL HISTORY: The patient is status post surgery for lysis of adhesions because of small-bowel obstruction this morning. Pain well controlled postop. No new complaints. This was performed by Dr. Mobley. Review of systems: 12 point review of systems negative except as per interval history Vitals: Tmax 98.2 Pulse 77 respirations 17 blood pressure 159/84 O2 saturation 97% on room air Physical exam: generali: no acute distress, vitals as above. heart: RRR. no murmurs noted Pulm: CTAB Abdomen: bandaged. bandages c/d/i. bowel sounds almost absent extremities: no clubbing, cyanosis, or edema. neurologic: PERRL. moving all extremities psych: awake, alert, oriented x 3 skin: dry, no new rashes. assessment and plan. 1. SBO: status post surgery for lysis of adhesions because of small-bowel obstruction this morning by Dr. Mobley. Continue to monitor in the postop setting. We will await further surgical recommendations. 2. Likely pneumonia. Respiratory status, doing well. Continue Zosyn and monitor. 3. Hyperlipidemia. We will continue home lovastatin once he is able to take p.o. 4. Hyperglycemia. Pretty minimal. Patient was on D5 previously. Off of D5 now. If hyperglycemia continues, then may consider further workup, but likely just due to IV glucose administration. MTDD
[2019-10-01] MEDS: LOVENOX SUBQ SCH (20:43)
[2019-10-02] MEDS: PROTONIX IV SCH (02:12)
[2019-10-02] MEDS: SODIUM CHLORIDE 0.9% INJ SCH (02:13)
[2019-10-02] MEDS: MORPHINE IV PRN ×2 (02:21→14:32)
[2019-10-02] MEDS: ZOSYN 3.375 GM in NS 50 ML IV SCH ×3 (05:06→17:06)
[2019-10-02 06:31] LABS: BASO# 0.02 X1000 (0.0-0.2); BASO% 0.1 % (0.0-0.8); EOS# 0.02 X1000 (0.0-0.7); EOS% 0.1 % (0.0-10.0); HEMATOCRIT 44.7 % (42.0-52.0); HEMOGLOBIN 15.2 g/dL (14.0-18.0); IMM GRAN# 0.03 X1000 (0.0-0.04); IMM GRAN% 0.2 % (0.0-0.5); LYMPH# 2.04 X1000 (1.2-3.4); MCH 30.6 PG (27-31); MCV 89.9 FL (81-99); MONO# 2.19 X1000 (0.11-0.59); MPV 9.9 FL (7.4-10.4); NEUT% 70.6 % (42.2-75.2); PLT 282 X1000 (130-400); RBC 4.97 XMIL (4.7-6.1)
[2019-10-02 06:51] LABS: AGAP 12; BUN 16 mg/dL (8-22); CALCIUM 8.6 mg/dL (8.8-10.2); CHLORIDE 100 mmol/L (98-107); COSMO 279; CREATININE 1.1 mg/dL (0.7-1.2); ESTIMATED GFR > 60; GLUCOSE 109 mg/dL (70-104); POTASSIUM 3.7 mmol/L (3.5-5.1); SODIUM 139 mmol/L (136-145); TCO2 27 mmol/L (25-35)
[2019-10-02] MEDS: ZOFRAN IV PRN (14:32)
--- NOTE | 2019-10-02 15:22 | PROGRESS NOTE ---
DATE: 10/02/2019 SUBJECTIVE: The patient reports feeling fine. Abdominal pain is under control. No other complaints noted. OBJECTIVE: Vital Signs: Temperature 98 degrees, heart rate 77, respiratory rate 18, blood pressure 150/90. O2 saturation 95% on 3 L nasal cannula. General Examination: This is a 69-year- old male, lying in bed, in no acute distress. Cardiovascular: S1, S2 heard. No murmurs, gallops, or rubs. Regular rate and rhythm. Respiratory: Clear bilaterally to auscultation. No work of breathing or using accessory muscles. Abdomen: Soft, a little bit distended. Dressing covering surgical scar. Extremities: No clubbing, cyanosis, or edema. Peripheral pulses present in both legs. Neurological: Patient alert oriented x3. Moves 4 extremities. LABORATORY DATA: White cell count 14.6, hemoglobin 15.2, hematocrit 44.7, platelets 282,000 with normal BMP. ASSESSMENT AND PLAN: 1. Small bowel obstruction status post surgery for lysis of adhesions. Continue to monitor this patient closely. General Surgery following this patient. 2. Likely pneumonia. The patient has elevated white cell count. At this point, we will continue with Zosyn. 3. Hyperlipidemia. We will continue with lovastatin once he is able to take medications by mouth. 4. Hyperglycemia. We are not completely sure if this patient has diabetes or not. He has been on D5 normal saline before but we are going to check it. We are going to check A1c but pretty much hyperglycemia due to IV glucose administration. 5. Disposition. We will continue to monitor this patient closely. cc: Segundo Mckoy MD
[2019-10-02] MEDS: LOVENOX SUBQ SCH (20:44)
[2019-10-03] MEDS: PROTONIX IV SCH (00:22)
[2019-10-03] MEDS: ZOSYN 3.375 GM in NS 50 ML IV SCH ×5 (00:22→22:58)
[2019-10-03] MEDS: SODIUM CHLORIDE 0.9% INJ SCH (00:23)
--- NOTE | 2019-10-03 02:26 | GENERAL SURGERY PROGRESS NOTE ---
DATE: 10/02/2019 SUBJECTIVE: The patient is feeling better. He now has soreness rather than a severe type pain. OBJECTIVE: Vital Signs: He is afebrile. Vital signs are stable. General: He is awake, alert, oriented x3. No acute distress. GI: Soft, appropriately tender. Incision is clean, dry and intact. LABORATORY DATA: White blood cell count 14,000, hemoglobin 15, hematocrit 44. Electrolytes reviewed and unremarkable. Serum lactate 1.3. ASSESSMENT AND PLAN: A 69-year-old male postoperative day 1 lysis of adhesions. He looks much improved. I would continue his antibiotics for now. We will repeat a CBC tomorrow and monitor the NG tube output, we may be able to remove it tomorrow as well as start a liquid diet. cc: Adi Mobley MD
[2019-10-03 07:09] LABS: BASO# 0.06 X1000 (0.0-0.2); BASO% 0.5 % (0.0-0.8); EOS% 0.9 % (0.0-10.0); HEMATOCRIT 43.4 % (42.0-52.0); HEMOGLOBIN 14.6 g/dL (14.0-18.0); IMM GRAN# 0.02 X1000 (0.0-0.04); IMM GRAN% 0.2 % (0.0-0.5); LYMPH# 1.29 X1000 (1.2-3.4); LYMPH% 11.5 % (20.5-51.1); MCH 30.5 PG (27-31); MCHC 33.6 g/dL (33-37); MCV 90.8 FL (81-99); MONO# 1.51 X1000 (0.11-0.59); MONO% 13.5 % (1.7-9.3); MPV 9.7 FL (7.4-10.4); NEUT# 8.21 X1000 (1.4-6.5); NEUT% 73.4 % (42.2-75.2); PLT 287 X1000 (130-400); RBC 4.78 XMIL (4.7-6.1); RDW 12.8 % (11.5-14.5); WBC 11.19 X1000 (4.8-10.8)
[2019-10-03 07:36] LABS: AGAP 12; BUN 17 mg/dL (8-22); CALCIUM 8.8 mg/dL (8.8-10.2); CHLORIDE 100 mmol/L (98-107); COSMO 281; ESTIMATED GFR > 60; GLUCOSE 102 mg/dL (70-104); POTASSIUM 3.5 mmol/L (3.5-5.1); SODIUM 140 mmol/L (136-145); TCO2 28 mmol/L (25-35)
--- NOTE | 2019-10-03 09:02 | Diag Imaging Result Doc PS360 ---
CHEST-2 VIEWS - 10/03/2019 INDICATION: pna COMPARISON: 10/01/2019 FINDINGS: There is a nasogastric tube. There are numerous wires projecting over the midline. Nasogastric tube is probably in the distal esophagus. There is some trace free air underneath the right hemidiaphragm. There is a trace left pleural effusion and some left basilar infiltrate or atelectasis. IMPRESSION: 1. Indeterminate positioning of the nasogastric tube. 2. Trace intraperitoneal free air. 3. This report was discussed with RT Nabeel on 10/03/2019 at 8:59 AM and was readback. Electronically signed by Hernando Reyez 10/03/2019 9:00 AM
[2019-10-03] MEDS: PERIDEX MT SCH ×2 (10:34→22:58)
--- NOTE | 2019-10-03 19:41 | GENERAL SURGERY PROGRESS NOTE ---
DATE: 10/03/2019 SUBJECTIVE: The patient is feeling better. He has some abdominal soreness, but nothing severe. No nausea or vomiting. He is passing gas. He is sitting up in a chair currently. OBJECTIVE: Vital Signs: He is afebrile. His vital signs are stable. General: He is awake, alert, oriented x3. No acute distress. Gastrointestinal: Soft, nondistended, appropriately tender. He does have bowel sounds. Incisional dressing is clean and dry. LABORATORY: White cell count 11,000, hemoglobin 14. Electrolytes reviewed and unremarkable. ASSESSMENT AND PLAN: A 69-year-old male, status post lysis of adhesions for bowel obstruction. He is improving. His nasogastric tube has been clamped overnight. If the residual is low, we will remove it today and start him on a clear liquid diet. He is afebrile and his white blood cell count is coming down. I think we can continue the Zosyn 1 more day and then stop it if he has no decline. cc: Adi Mobley MD
--- NOTE | 2019-10-03 21:49 | EKG Report ---
Test Performed on : 10/03/2019 9:36:45 PM Test Reason : Rhythm change Blood Pressure : / mmHG Vent. Rate : 090 BPM Atrial Rate : 090 BPM P-R Int : 140 ms QRS Dur : 098 ms QT Int : 362 ms P-R-T Axes : 064 023 010 degrees QTc Int : 442 ms Normal sinus rhythm. Nonspecific ST abnormality Abnormal ECG When compared with ECG of 29-SEP-2019 18:31, (Unconfirmed) Vent. rate has increased BY [address] now depressed in Anterior leads T wave inversion now evident in Anterior leads Confirmed by Charan ESTEVEZ, Rowdy ([id number]) on 10/04/2019 8:11:27 AM
[2019-10-03 22:43] LABS: AGAP 14; BUN 15 mg/dL (8-22); CALCIUM 9.1 mg/dL (8.8-10.2); CHLORIDE 99 mmol/L (98-107); CK PROFILE 112 U/L (24-204); COSMO 281; CREATININE 0.9 mg/dL (0.7-1.2); ESTIMATED GFR > 60; GLUCOSE 117 mg/dL (70-104); MAGNESIUM 2.1 mg/dL (1.5-2.7); SODIUM 140 mmol/L (136-145); TCO2 27 mmol/L (25-35)
[2019-10-03] MEDS: LOVENOX SUBQ SCH (22:58)
[2019-10-04] MEDS ORDERED: TYLENOL PO PRN (00:08)
[2019-10-04] MEDS ORDERED: NS 500 ML IV SCH (01:30)
[2019-10-04] MEDS: SODIUM CHLORIDE 0.9% INJ SCH (02:21)
[2019-10-04] MEDS: PROTONIX IV SCH (02:22)
[2019-10-04] MEDS: POTASSIUM CHLORIDE 20 MEQ/SWI 20 MEQ/100 ML IVPB IV SCH ×2 (02:30→04:32)
[2019-10-04] MEDS: MORPHINE IV PRN (04:43)
--- NOTE | 2019-10-04 05:18 | PROGRESS NOTE ---
DATE: 10/03/2019 SUBJECTIVE: The patient has no major complaints. He seems to be doing better. Abdominal pain, a little bit better. OBJECTIVE: Vital signs: Blood pressure 144/87, heart rate 73, respiratory rate 20, temperature 98.6 degrees. Cardiovascular: Regular rate and rhythm. Pulmonary: Bilateral breath sounds, clear to auscultation. Gastrointestinal: Soft, nontender, nondistended. Bowel sounds are positive. LABORATORY DATA: White count 11, hemoglobin and hematocrit 14 and 43, platelets of 287,000. Basic was normal, except potassium of 3.3. PROBLEM LIST: 1. Small-bowel obstruction status post lysis of adhesions. He is doing okay. Surgery is following. Continue to advance diet. 2. Possible pneumonia: We will continue treatment with Zosyn. We will follow clinically. 3. Hyperglycemia, has improved. 4. Hypokalemia. We will supplement and follow. DISPOSITION: Pending her clinical status. cc: Alireza Perez MD MTDD
[2019-10-04] MEDS: ZOSYN 3.375 GM in NS 50 ML IV SCH ×3 (06:40→18:32)
[2019-10-04] MEDS: LOPRESSOR PO SCH ×2 (11:38→23:00)
[2019-10-04] MEDS: D5 1/2 NS + KCL 20 MEQ 1,000 ML IV SCH (11:38)
[2019-10-04] MEDS: PERIDEX MT SCH ×2 (11:39→21:00)
--- NOTE | 2019-10-04 11:49 | EKG Report ---
Test Performed on : 10/04/2019 11:37:04 AM Test Reason : afib Blood Pressure : / mmHG Vent. Rate : 068 BPM Atrial Rate : 068 BPM P-R Int : 130 ms QRS Dur : 112 ms QT Int : 404 ms P-R-T Axes : 088 098 137 degrees QTc Int : 429 ms Normal sinus rhythm. Rightward axis Incomplete right bundle branch block Cannot rule out Inferior infarct , age undetermined Abnormal ECG When compared with ECG of 03-OCT-2019 21:36, Minimal criteria for Inferior infarct are now present T wave inversion no longer evident in Inferior leads T wave inversion now evident in Lateral leads Confirmed by Charan ESTEVEZ, Rowdy ([id number]) on 10/04/2019 5:55:34 PM
[2019-10-04 12:03] LABS: BASO# 0.09 X1000 (0.0-0.2); EOS# 0.49 X1000 (0.0-0.7); EOS% 5.3 % (0.0-10.0); HEMATOCRIT 42.8 % (42.0-52.0); HEMOGLOBIN 14.4 g/dL (14.0-18.0); IMM GRAN# 0.02 X1000 (0.0-0.04); IMM GRAN% 0.2 % (0.0-0.5); LYMPH# 1.56 X1000 (1.2-3.4); LYMPH% 16.9 % (20.5-51.1); MCH 30.3 PG (27-31); MCHC 33.6 g/dL (33-37); MCV 90.1 FL (81-99); MONO# 1.07 X1000 (0.11-0.59); MONO% 11.6 % (1.7-9.3); MPV 9.4 FL (7.4-10.4); NEUT# 5.99 X1000 (1.4-6.5); PLT 306 X1000 (130-400); RBC 4.75 XMIL (4.7-6.1); RDW 12.6 % (11.5-14.5); WBC 9.22 X1000 (4.8-10.8)
--- NOTE | 2019-10-04 13:06 | GENERAL SURGERY PROGRESS NOTE ---
DATE: 10/04/2019 SUBJECTIVE: He is doing well, although he did have some atrial fibrillation last night, probably due to hypokalemia. He complains of some abdominal soreness, but it is not severe. He is tolerating some sips of clears, and passing gas. OBJECTIVE: Vital Signs: He is afebrile. Vital signs stable. General: He is awake, alert, and oriented x3. No acute distress. Gastrointestinal: Soft, nondistended, appropriately tender. Incisional dressing is clean and dry. LABORATORY DATA: None today. ASSESSMENT AND PLAN: A 69-year-old male status post exploratory laparotomy with lysis of adhesions for small-bowel obstruction. This is much improved. We will start him on a clear liquid diet today, and advance as tolerated to gastrointestinal soft. cc: Adi Mobley MD
[2019-10-04 13:24] LABS: AGAP 11; BUN 14 mg/dL (8-22); CALCIUM 8.8 mg/dL (8.8-10.2); CHLORIDE 103 mmol/L (98-107); COSMO 285; CREATININE 0.9 mg/dL (0.7-1.2); ESTIMATED GFR > 60; GLUCOSE 120 mg/dL (70-104); POTASSIUM 3.7 mmol/L (3.5-5.1); SODIUM 142 mmol/L (136-145); TCO2 28 mmol/L (25-35)
--- NOTE | 2019-10-04 15:36 | ECHO REPORT ---
ORDER DATE: 10/03/2019 INTERPRETING PHYSICIAN: Dr. Jan Mc ECHOCARDIOGRAPHIC MEASUREMENTS: 1. Interventricular septum: 1.1 cm. 2. Posterior wall: 1.1 cm. 3. Diastolic diameter: 3.6 cm. 4. Left atrium: 3.0 cm. 5. Aortic root: 2.9 cm. SUMMARY OF THE 2-DIMENSIONAL IMAGIN. Aortic valve leaflets are trileaflet. 2. Mitral valve was normal. 3. Tricuspid valve was normal. 4. Pulmonic valve was normal. 5. There is mild tricuspid regurgitation. Peak velocity across the tricuspid valve was 2.6 m/sec. 6. Pulmonary artery systolic pressure of 28 mmHg. 7. Peak velocity across the aortic valve less than 2 m/sec. There is no aortic stenosis or regurgitation. 8. There is mild mitral regurgitation. 9. Normal left ventricular cavity size. Estimated ejection fraction of 60%. There is grade 1 diastolic dysfunction. 10. There is no pericardial effusion or obvious intracardiac mass or thrombus. cc: Jan Mc MD
[2019-10-04] MEDS: LOVENOX SUBQ SCH (21:00)
[2019-10-05] MEDS: PROTONIX IV SCH (01:34)
[2019-10-05] MEDS: ZOSYN 3.375 GM in NS 50 ML IV SCH ×2 (01:34→07:47)
[2019-10-05] MEDS: SODIUM CHLORIDE 0.9% INJ SCH (01:34)
[2019-10-05] MEDS: D5 1/2 NS + KCL 20 MEQ 1,000 ML IV SCH (03:42)
[2019-10-05 06:52] LABS: BASO# 0.06 X1000 (0.0-0.2); BASO% 0.6 % (0.0-0.8); HEMATOCRIT 42.5 % (42.0-52.0); HEMOGLOBIN 14.4 g/dL (14.0-18.0); IMM GRAN# 0.03 X1000 (0.0-0.04); IMM GRAN% 0.3 % (0.0-0.5); LYMPH# 1.37 X1000 (1.2-3.4); LYMPH% 13.6 % (20.5-51.1); MCHC 33.9 g/dL (33-37); MCV 88.5 FL (81-99); MONO# 1.26 X1000 (0.11-0.59); MONO% 12.5 % (1.7-9.3); MPV 9.7 FL (7.4-10.4); NEUT# 6.87 X1000 (1.4-6.5); PLT 334 X1000 (130-400); RDW 12.4 % (11.5-14.5); WBC 10.09 X1000 (4.8-10.8)
[2019-10-05 07:16] LABS: AGAP 11; BUN 9 mg/dL (8-22); CALCIUM 8.7 mg/dL (8.8-10.2); CHLORIDE 101 mmol/L (98-107); COSMO 274; CREATININE 0.8 mg/dL (0.7-1.2); ESTIMATED GFR > 60; GLUCOSE 122 mg/dL (70-104); MAGNESIUM 1.8 mg/dL (1.5-2.7); POTASSIUM 3.5 mmol/L (3.5-5.1); SODIUM 137 mmol/L (136-145); TCO2 25 mmol/L (25-35)
[2019-10-05] MEDS: PERIDEX MT SCH (10:15)
[2019-10-05 11:19] VITALS: BP 145/77
[2019-10-05 11:30] LABS: FREE T4 1.46 ng/dL (0.93-1.70); TSH 3.54 uIUmL (0.27-4.20)
--- NOTE | 2019-10-05 13:00 | PROGRESS NOTE ---
DATE: 10/05/2019 SUBJECTIVE: Patient has no major complaints. We are going to continue to monitor. OBJECTIVE: Vital Signs: Blood pressure is 145/77, heart rate 59, respiratory rate 16, temperature 97.9 degrees, 96% on room air. Cardiovascular: Regular rate and rhythm. Pulmonary: Bilateral breath sounds clear to auscultation. Gastrointestinal: Abdomen soft, nontender, nondistended. Bowel sounds are positive. LABORATORY DATA: White count was 9, hemoglobin and hematocrit 14 and 42. Platelets of 306,000. Potassium 3.7. PROBLEM LIST: 1. Small bowel obstruction status post lysis of adhesions. We are advancing diet. He seems to be doing okay. Dr. Mobley is following. 2. Questionable pneumonia. He is on Zosyn which he has had now for 4 days not clear that he has a large pneumonia. His last chest x-ray he had a left basilar infiltrate. In any case, we will continue. Disposition pending clinical status. 3. Paroxysmal atrial fibrillation. We will pursue EKG, echo and follow. Currently, he is in sinus rhythm. He has no history of this previously. It may have been related to hypokalemia. I have gone ahead and started some beta blockers. I think his CHADS-VASc score though is only 1 for his age. He does not have hypertension, diabetes, stroke, any of those kinds of issues so he does not require anticoagulation at this point. We will set him up with [facility] at [facility]. cc: Alireza Perez MD
--- NOTE | 2019-10-05 14:12 | GENERAL SURGERY PROGRESS NOTE ---
DATE: 10/05/2019 SUBJECTIVE: The patient is doing pretty well. He did have some diarrhea last night and crampy pain, but that is resolved this morning. He is tolerating his liquid diet without any nausea or vomiting. He is walking around without difficulty. OBJECTIVE: He is afebrile. Vital signs are stable.General: He is awake, alert, and oriented x3. No acute distress. Gastrointestinal: Soft, nondistended. Minimally tender. Incision is clean, dry, and intact. LABORATORY: CBC and metabolic profile reviewed and unremarkable. His potassium is now 3.5. IMAGING: EKG was done yesterday which showed normal sinus rhythm, and an incomplete right bundle- branch block. The telemetry report reveals no further atrial fibrillation, although he does have some PACs. ASSESSMENT AND PLAN: A 69-year-old male status post exploratory laparotomy with lysis of adhesions for small bowel obstruction. The obstruction has resolved. He is tolerating a liquid diet. He is having bowel function. His atrial fibrillation was resolved. I will go ahead and discharge him. Instructions were given. He will follow up in my office next week for a wound check. He will follow up with Dr. Bustillo for his run of atrial fibrillation to see if there is any ongoing issues there, but I do not think he needs any medicine to go home with at this time. cc: Adi Mobley MD
--- NOTE | 2019-10-06 08:26 | DISCHARGE SUMMARY ---
ADMISSION DATE: 09/29/2019 DISCHARGE DATE: 10/05/2019 ADMITTING PHYSICIAN: Dr. Whittington. DISCHARGING PHYSICIAN: Dr. Adi Mobley. CONSULT: Dr. Adi Mobley. ADMITTING DIAGNOSIS: Small bowel obstruction. DISCHARGE DIAGNOSIS: Small bowel obstruction and atrial fibrillation. PROCEDURE: Exploratory laparotomy with lysis of adhesions. HOSPITAL COURSE: This gentleman was in his usual state of good health until he had acute onset of abdominal pain. He presented to the hospital and was found to have small-bowel obstruction. He was admitted, kept NPO and surgical consult was obtained. He was taken to the operating room for exploratory laparotomy on 10/01/2019. For full details of that operation, please see the dictated report by Dr. Mobley. Postoperatively, over the next 4 days, he made steady improvement. His NG tube was able to be removed on postop day 2. He was started on a liquid diet and tolerated this. He started having bowel function again. He was able to ambulate and void. His pain was well controlled. He did have a short episode of atrial fibrillation, likely related to hypokalemia, which has since been corrected and the atrial fibrillation resolved. Telemetry did report some PACs. He denies chest pain or shortness of breath and an EKG done on 10/04/2019 showed normal sinus rhythm. He was discharged home on 10/05/2019 in stable condition. Instructions were given, which include no lifting over 15 to 20 pounds. He may shower. He may eat a regular diet as tolerated. He should follow up with Dr. Bustillo for repeat EKG and general checkup. He should follow up follow up in Dr. Mobley's office next week for a wound check and surgical postop check. DIET: Is regular. DISCHARGE MEDICATIONS: He will resume his home lovastatin and he has new prescription for Lerona 10 mg. cc: MD Cathie Spears MD
--- NOTE | 2019-10-06 11:26 | DISCHARGE SUMMARY ---
ADMISSION DATE: 09/29/2019 DISCHARGE DATE: 10/05/2019 DISCHARGE DIAGNOSES: 1. Small-bowel obstruction. 2. Paroxysmal atrial fibrillation. 3. Pneumonia. 4. Hyperglycemia. 5. Hypokalemia. PROCEDURES: He had an exploratory laparotomy with lysis of adhesions on the per Dr. Mobley. HISTORY AND HOSPITAL COURSE: Briefly this is a 69-year-old male presenting with abdominal pain, nausea, vomiting, no bowel movement for 24 hours[place] [address] [place] showed panniculitis with a partial small-bowel obstruction. Dr. Mobley evaluated the patient. He was improved. He did not have a reason for small-bowel obstruction, but a small bowel series was ordered. I do not know if he got that, but his abdominal x-ray on the showed a small-bowel obstruction with air-fluid levels, and the small-bowel series that was done on the showed an obstruction in the upper pelvis near the left sacral ala and there was no progression of barium, so he had he did have a small-bowel obstruction. He underwent surgery on the which he tolerated. Slowly diet was advanced. He was maintained on Zosyn because of a left basilar infiltrate. On the , it was reported that he had some paroxysmal atrial fibrillation during the night, so he was evaluated for atrial fibrillation. Reviewing the strips, I am not really sure I clearly saw an atrial fibrillation. There may have been one that showed some flutter. I looked at all the telemetry strips and I started Toprol. In any case, he was monitored and he had no major issues. His echo really was unremarkable. EF is 60%. There was grade 1 diastolic dysfunction. Other than that, everything looked normal. EKG did not reveal atrial fibrillation and he was asymptomatic and when it happened, he was hypokalemic with a potassium of 3. Thyroid function studies were normal. So, in any case, he was discharged after evaluation by Dr. Mobley. DISCHARGE MEDICATIONS: Lovastatin 40, aspirin 81 mg, Augmentin 875 q.12h for 5 more days, [place] p.r.n. per Dr. Mobley, and Toprol-XL 25 daily. FOLLOWUP: [facility] will [facility] and we will go from there. TIME SPENT: A 32 minute discharge. cc: MD Cathie Sun MD Jason R. Seale, MD
== END 2019-10-05 12:26 | disposition home or self-care (01) | DRG 335 ==
LOC: P.ED 18:15 → 3N 22:08 → SUATTDRO 22:08 → 4N 10-01 11:44
PROVIDERS: ATTEND Internal Medicine